=== PATIENT | male | born 1990 ===

== ENCOUNTER 2017-10-06 18:42 | Emergency (ER) | payer MEDICAID, OTHER ==
[2017-10-06 18:47] VITALS: BP 129/79; PULSE 82; RESP 18; TEMP 97.4; O2SAT 97
--- NOTE | 2017-10-06 19:01 | ED PDOC ---
HPI: Eye Injury/Pain Time Seen by Provider: 10/06/17 18:47 Chief Complaint (Nursing): Eye Problem Chief Complaint (Provider): Eye Problem History Per: Patient History/Exam Limitations: no limitations Onset/Duration Of Symptoms: Days Current Symptoms Are (Timing): Still Present Quality: Burning Associated Symptoms: Swelling Additional Complaint(s): Gurmeet Hendricks is a 27 year old male with no past medical history, who is presenting to the ER with complaints of eye swelling and pain described as a burning sensation, onset yesterday. Patient states that he had these symptoms last night but they resolved. He reports experiencing them again today associated with drainage from the eyes. Patient states that took Claritin just prior to arrival. He denies any fever, cough, headaches, abdominal pain, nausea , or vomiting. Patient offers no other medical complaints at this time. PMD: [facility] Past Medical History Reviewed: Historical Data, Nursing Documentation, Vital Signs Vital Signs: Last Vital Signs Temp 97.4 F L 10/06/17 18:44 Pulse 82 10/06/17 18:44 Resp 18 10/06/17 18:44 BP 129/79 10/06/17 18:44 Pulse Ox 97 10/06/17 18:44 - Medical History PMH: No Chronic Diseases - Surgical History Surgical History: No Surg Hx - Family History Family History: States: Unknown Family Hx - Social History Current smoker - smoking cessation education provided: Yes (light) Alcohol: Occasional Drugs: Denies - Home Medications Home Medications: Ambulatory Orders Medication Instructions Recorded Montelukast [Singulair] 10 mg PO DAILY #14 tab 10/06/17 - Allergies Allergies/Adverse Reactions: Allergies Allergy/AdvReac Type Severity Reaction Status Date / Time No Known Allergies Allergy Verified 10/06/17 18:44 Review of Systems ROS Statement: Except As Marked, All Systems Reviewed And Found Negative Constitutional: Negative for: Fever Eyes: Positive for: Pain (burning sensation ), Eyelid Inflammation, Redness Respiratory: Negative for: Cough Gastrointestinal: Negative for: Nausea, Vomiting, Abdominal Pain Neurological: Negative for: Headache Physical Exam - Reviewed Nursing Documentation Reviewed: Yes Vital Signs Reviewed: Yes - Physical Exam Appears: Positive for: Non-toxic, No Acute Distress Head Exam: Positive for: ATRAUMATIC, NORMAL INSPECTION, NORMOCEPHALIC Skin: Positive for: Normal Color Eye Exam: Positive for: Conjunctival injection (scleral, bilaterally), Other. Negative for: Normal appearance ENT: Positive for: Pharynx Is (mild erythema), Nasal Congestion (post nasal drip ) Neck: Positive for: Normal Cardiovascular/Chest: Positive for: Regular Rate, Rhythm Respiratory: Positive for: Normal Breath Sounds. Negative for: Respiratory Distress Back: Positive for: Normal Inspection Extremity: Positive for: Normal ROM Neurologic/Psych: Positive for: Alert, Oriented, Gait. Negative for: Motor/ Sensory Deficits - ECG O2 Sat by Pulse Oximetry: 97 (RA) Pulse Ox Interpretation: Normal Medical Decision Making Medical Decision Making: Provider evaluated patient in ED and advised him of possible seasonal allergies , which could be causing his symptoms. Patient advised to try using Claritin for 2 to 3 days and observe if he notices any relief of symptoms. Provider also provided patient with a prescription for Singulair. Upon provider reevaluation patient is medically stable, and requires no further treatment in the ED at this time. Patient will be discharged with Rx for Singulair. Counseling was provided and all questions were answered regarding diagnosis and need for follow up with PMD. There is agreement to discharge plan. Return if symptoms persist or worsen. Scribe Attestation: Documented by Sari Wills, acting as a scribe for Mehnaz Kearney PA-C. Provider Scribe Attestation: All medical record entries made by the Scribe were at my direction and personally dictated by me. I have reviewed the chart and agree that the record accurately reflects my personal performance of the history, physical exam, medical decision making, and the department course for this patient. I have also personally directed, reviewed, and agree with the discharge instructions and disposition. Disposition - Clinical Impression Clinical Impression: Seasonal allergies - Disposition Disposition: Routine/Home Disposition Time: 19:10 Condition: STABLE Prescriptions: Montelukast [Singulair] 10 mg PO DAILY #14 tab Instructions: Seasonal Allergies in Adults Forms: [facility] (Italian)
== END 2017-10-06 19:19 | disposition home or self-care (01) ==
LOC: H.ER 18:42
DX: J30.2 Other seasonal allergic rhinitis (principal)

== ENCOUNTER 2017-10-08 22:30 | Emergency (ER) | payer MEDICAID, OTHER ==
[2017-10-08 22:38] VITALS: BP 138/80; PULSE 79; RESP 17; TEMP 98.2; O2SAT 97
--- NOTE | 2017-10-08 22:51 | ED PDOC ---
HPI: Eye Injury/Pain Time Seen by Provider: 10/08/17 22:43 Chief Complaint (Nursing): Eye Problem Chief Complaint (Provider): eye irritation History Per: Patient Additional Complaint(s): 27 y/o male presents with irritation and discharge from both eyes ongoing for 3 days. Patient was seen in ED 3 days ago and was given prescription for Singulair which he did not fill. He has been taking Claritin daily which has not helped. Patient states he is waking up in the morning with crusted discharge from both eyes. He denies foreign body sensation. PMD: none Past Medical History Reviewed: Historical Data, Nursing Documentation, Vital Signs Vital Signs: Last Vital Signs Temp 98.2 F 10/08/17 22:35 Pulse 79 10/08/17 22:35 Resp 17 10/08/17 22:35 BP 138/80 10/08/17 22:35 Pulse Ox 97 10/08/17 22:35 - Medical History PMH: No Chronic Diseases - Surgical History Surgical History: No Surg Hx - Family History Family History: States: No Known Family Hx - Living Arrangements Living Arrangements: With Family - Social History Current smoker - smoking cessation education provided: No Alcohol: None Drugs: Denies - Home Medications Home Medications: Ambulatory Orders Medication Instructions Recorded Montelukast [Singulair] 10 mg PO DAILY #14 tab 10/06/17 Tobramycin [Tobrex] 5 ml TOP QID #1 bottle 10/08/17 - Allergies Allergies/Adverse Reactions: Allergies Allergy/AdvReac Type Severity Reaction Status Date / Time No Known Allergies Allergy Verified 10/06/17 18:44 Review of Systems ROS Statement: Except As Marked, All Systems Reviewed And Found Negative Constitutional: Negative for: Fever Eyes: Positive for: Other (discharge and irritation from both eyes) Neurological: Negative for: Headache, Dizziness Physical Exam - Reviewed Nursing Documentation Reviewed: Yes Vital Signs Reviewed: Yes - Physical Exam Appears: Positive for: Well, Non-toxic, No Acute Distress Skin: Negative for: Rash Eye Exam: Positive for: EOMI, PERRL, Other (Bilateral conjunctival injection with tearing and discharge noted, no periorbital tenderness or swelling, no gross FB bilaterally) Neurologic/Psych: Positive for: Alert, district recruiter II-XII (grossly intact), Oriented, Gait (steady). Negative for: Motor/Sensory Deficits - ECG O2 Sat by Pulse Oximetry: 97 Pulse Ox Interpretation: Normal Medical Decision Making Medical Decision Making: Impression: Bilateral conjunctivitis Plan: Rx tobramycin for pink eye Previous records reviewed. Patient was instructed to fill prescription for singulair and take as directed. Patient was referred to clinic for follow up. Disposition - Clinical Impression Clinical Impression: Conjunctivitis - Patient ED Disposition Is Patient to be Admitted: No Counseled Patient/Family Regarding: Diagnosis, Need For Followup, Rx Given - Disposition Referrals: [facility] [Outside] Gerson Chandler MD [Staff Provider] - Disposition: Routine/Home Disposition Time: 23:10 Condition: STABLE Additional Instructions: Apply prescription drops as directed. Prescription for Singulair and take as directed. Use [id number] Zatidor eye drops for allergy symptoms. Follow up with eye doctor or with clinic. Prescriptions: Tobramycin [Tobrex] 5 ml TOP QID #1 bottle Instructions: Conjunctivitis (Pinkeye) (DC) Forms: [facility] ([place]an)
== END 2017-10-09 00:17 | disposition home or self-care (01) ==
LOC: H.ER 22:30
DX: H10.9 Unspecified conjunctivitis (principal)

== ENCOUNTER 2017-10-29 20:41 | Emergency (ER) | payer MEDICAID ==
[2017-10-29 20:52] VITALS: BP 142/58; PULSE 88; RESP 18; TEMP 98.2; O2SAT 99
[2017-10-29] MEDS ORDERED: PROPARACAINE/FLUORESCEIN SOD 100 DROP/5 ML BOTTLE OS STA (21:22)
[2017-10-29] MEDS ORDERED: PROPARACAINE/FLUORESCEIN SOD 100 DROP/5 ML BOTTLE ONE (21:28)
--- NOTE | 2017-10-29 21:45 | ED PDOC ---
HPI: Eye Injury/Pain Time Seen by Provider: 10/29/17 20:58 Chief Complaint (Nursing): Eye Problem Chief Complaint (Provider): Left eye pain, FB sensation x 3 days History Per: Patient History/Exam Limitations: no limitations Onset/Duration Of Symptoms: Days Current Symptoms Are (Timing): Still Present Additional Complaint(s): 27 yo male with no medical problems presents with left eye pain for 3 days with FB sensation. PT states he has been having bilateral eye redness and itchiness of the eyes for 3 weeks. PT was seen in ER twice and given oral medication for allergies as well as antibiotic drops. Pt states 3 days ago he began to have worsening pain in the left eye and FB sensation. Pt has not seen or made an appointment with eye doctor yet. Past Medical History Reviewed: Historical Data, Nursing Documentation, Vital Signs Vital Signs: Last Vital Signs Temp 98.2 F 10/29/17 20:50 Pulse 88 10/29/17 20:50 Resp 18 10/29/17 20:50 BP 142/58 L 10/29/17 20:50 Pulse Ox 99 10/29/17 20:50 - Medical History PMH: No Chronic Diseases - Surgical History Surgical History: No Surg Hx - Family History Family History: States: Unknown Family Hx - Living Arrangements Living Arrangements: With Family - Social History Current smoker - smoking cessation education provided: No - Home Medications Home Medications: Ambulatory Orders Medication Instructions Recorded Montelukast [Singulair] 10 mg PO DAILY #14 tab 10/06/17 Montelukast [Singulair] 10 mg PO DAILY #30 tab 10/08/17 Tobramycin [Tobrex] 5 ml TOP QID #1 bottle 10/08/17 Ofloxacin Ophth 0.3% [Ocuflox 10 drop XX DAILY #1 bottle 10/29/17 Ophth 0.3%] - Allergies Allergies/Adverse Reactions: Allergies Allergy/AdvReac Type Severity Reaction Status Date / Time No Known Allergies Allergy Verified 10/06/17 18:44 Review of Systems ROS Statement: Except As Marked, All Systems Reviewed And Found Negative Constitutional: Negative for: Fever, Chills Eyes: Positive for: Pain Physical Exam - Reviewed Nursing Documentation Reviewed: Yes Vital Signs Reviewed: Yes - Physical Exam Appears: Positive for: Well, Non-toxic, No Acute Distress Head Exam: Positive for: ATRAUMATIC, NORMAL INSPECTION, NORMOCEPHALIC Skin: Positive for: Normal Color, Warm, DRY Eye Exam: Positive for: EOMI, PERRL, Conjunctival injection, Other ((+) corneal abrasion on the left ). Negative for: Normal appearance ENT: Positive for: Normal ENT Inspection Neck: Positive for: Normal, Painless ROM Respiratory: Negative for: Accessory Muscle Use, Respiratory Distress Back: Positive for: Normal Inspection Extremity: Positive for: Normal ROM Neurologic/Psych: Positive for: Alert, Oriented - ECG O2 Sat by Pulse Oximetry: 99 Medical Decision Making Medical Decision Making: Case discussed with Dr. Dawkins. Patch placed. Disposition - Clinical Impression Clinical Impression: Corneal abrasion - Patient ED Disposition Is Patient to be Admitted: No Counseled Patient/Family Regarding: Diagnosis, Need For Followup, Rx Given - Disposition Referrals: Gerson Chandler MD [Staff Provider] - Disposition: Routine/Home Disposition Time: 21:44 Condition: STABLE Additional Instructions: Please follow-up with data collection specialist. Do not wear contacts. Prescriptions: Ofloxacin Ophth 0.3% [Ocuflox Ophth 0.3%] 10 drop XX DAILY #1 bottle Instructions: Corneal Abrasion (DC) Forms: [facility] (Citizen [place])
== END 2017-10-29 22:12 | disposition home or self-care (01) ==
LOC: H.ER 20:41
DX: S05.02XA Injury of conjunctiva and corneal abrasion without foreign body, left eye, initial encounter (principal); Y92.89 Other specified places as the place of occurrence of the external cause

== ENCOUNTER 2018-02-25 21:39 | Emergency (ER) | payer MEDICAID ==
[2018-02-25 22:46] VITALS: BP 103/65; PULSE 80; RESP 20; O2SAT 100
--- NOTE | 2018-02-26 01:44 | ED PDOC ---
HPI: CCC, URI, Sore Throat Time Seen by Provider: 02/25/18 23:00 Chief Complaint (Nursing): ENT Problem Chief Complaint (Provider): Sore throat History Per: Patient Additional Complaint(s): 27yo male, comes to ER requesting note for work. He is requesting a note stating he was seen yesterday as he had to leave work early. He states he was seen by his PMD 3 days ago and was given antibiotics which he is currently taking and improving on the abx. Patient has no medical complaints. Past Medical History Reviewed: Historical Data, Nursing Documentation, Vital Signs Vital Signs: Last Vital Signs Temp 97.9 F 02/26/18 02:36 Pulse 80 02/25/18 22:44 Resp 20 02/25/18 22:44 BP 103/65 02/25/18 22:44 Pulse Ox 100 02/26/18 02:34 - Medical History PMH: No Chronic Diseases - Surgical History Surgical History: No Surg Hx - Family History Family History: States: Unknown Family Hx - Social History Current smoker - smoking cessation education provided: No Alcohol: None Drugs: Denies - Home Medications Home Medications: Ambulatory Orders Medication Instructions Recorded Montelukast [Singulair] 10 mg PO DAILY #14 tab 10/06/17 Montelukast [Singulair] 10 mg PO DAILY #30 tab 10/08/17 Tobramycin [Tobrex] 5 ml TOP QID #1 bottle 10/08/17 Ofloxacin Ophth 0.3% [Ocuflox 10 drop XX DAILY #1 bottle 10/29/17 Ophth 0.3%] - Allergies Allergies/Adverse Reactions: Allergies Allergy/AdvReac Type Severity Reaction Status Date / Time No Known Allergies Allergy Verified 02/25/18 22:43 Review of Systems ROS Statement: Except As Marked, All Systems Reviewed And Found Negative Constitutional: Negative for: Fever, Chills ENT: Negative for: Throat Pain Respiratory: Negative for: Cough Physical Exam - Reviewed Nursing Documentation Reviewed: Yes Vital Signs Reviewed: Yes - Physical Exam Appears: Positive for: Well, Non-toxic, No Acute Distress Head Exam: Positive for: ATRAUMATIC, NORMAL INSPECTION, NORMOCEPHALIC Skin: Positive for: Normal Color, Warm, DRY Eye Exam: Positive for: EOMI, Normal appearance, PERRL ENT: Positive for: Normal ENT Inspection. Negative for: Pharyngeal Erythema, Tonsillar Exudate, Tonsillar Swelling Neck: Positive for: Normal, Painless ROM Cardiovascular/Chest: Positive for: Regular Rate, Rhythm Respiratory: Positive for: CNT, Normal Breath Sounds Gastrointestinal/Abdominal: Positive for: Normal Exam, Soft Back: Positive for: Normal Inspection Extremity: Positive for: Normal ROM Neurologic/Psych: Positive for: Alert, Oriented - ECG O2 Sat by Pulse Oximetry: 100 (RA) Pulse Ox Interpretation: Normal Medical Decision Making Medical Decision Making: Impression: Medical evaluation Patient informed to continue taking antibiotics as prescribed. Patient informed since he was not evaluated by myself yesterday, I am unable to provide the note he is requesting. Patient stable for discharge home. Scribe Attestation: Documented by Grace Beltran, acting as a scribe for Mercedes Andujar MD Provider Scribe Attestation: All medical record entries made by the Scribe were at my direction and personally dictated by me. I have reviewed the chart and agree that the record accurately reflects my personal performance of the history, physical exam, medical decision making, and the department course for this patient. I have also personally directed, reviewed, and agree with the discharge instructions and disposition. Disposition - Clinical Impression Clinical Impression: Ear, nose, and throat symptom - Patient ED Disposition Is Patient to be Admitted: No Counseled Patient/Family Regarding: Studies Performed, Diagnosis, Need For Followup - Disposition Referrals: Leroy Amaya MD [Primary Care Provider] - Disposition: Routine/Home Disposition Time: 02:30 Condition: IMPROVED Additional Instructions: follow up with your doctor in 2 days return to ED with any worsening or concerning symptoms Instructions: Sore Throat in Adults Forms: [facility] (Frisian), [facility] ED School/Work Excuse
[2018-02-26 02:37] VITALS: TEMP 97.9
== END 2018-02-26 02:39 | disposition home or self-care (01) ==
LOC: H.ER 21:39
DX: J02.9 Acute pharyngitis, unspecified (principal)